=== PATIENT | male | born 1990 | race Caucasian/White ===

== ENCOUNTER 2022-12-17 21:38 | Emergency (ER) | payer OTHER ==
[~2022-12-17] VITALS: Ht 182.9 cm; Wt 97.5 kg
[2022-12-18] MEDS ORDERED: HALOPERIDOL LACTATE INJ 5 MG/ML VIAL IM ONE (00:30)
[2022-12-18] MEDS ORDERED: diphenhydrAMINE HCL 50 MG/ML VIAL IM ONE (00:30)
[2022-12-18] MEDS ORDERED: diphenhydrAMINE HCL 50 MG/ML VIAL ONE (00:32)
[2022-12-18] MEDS ORDERED: HALOPERIDOL LACTATE INJ 5 MG/ML VIAL ONE (00:32)
[2022-12-18 01:59] VITALS: TEMP 98.6
[2022-12-18 04:32] VITALS: BP 173/105; O2SAT 100
== END 2022-12-18 04:53 | disposition left against medical advice (07) ==
LOC: ER 21:39
DX: S09.8XXA Other specified injuries of head, initial encounter (principal); F10.129 Alcohol abuse with intoxication, unspecified; E11.9 Type 2 diabetes mellitus without complications; Z60.2 Problems related to living alone; X58.XXXA Exposure to other specified factors, initial encounter; Y93.89 Activity, other specified; Y92.89 Other specified places as the place of occurrence of the external cause; Y99.8 Other external cause status; Y90.9 Presence of alcohol in blood, level not specified
CPT/HCPCS: 99284; 82962; 96372 ×2; J1200; J1630